=== PATIENT | male | born 2005 | race Caucasian/White ===

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

== ENCOUNTER 2023-12-02 13:25 | Emergency (ER) | payer OTHER ==
[~2023-12-02] VITALS: Ht 177.8 cm; Wt 69.9 kg
[~2023-12-02 13:25] MED LIST changes: +IBUP-2213 PO; +NAPR-337 PO; -NAPR-54 PO
[2023-12-02 13:30] VITALS: BP 135/85; PULSE 82; RESP 16; TEMP 98.9; O2SAT 96
[2023-12-02] MEDS: DICYCLOMINE HCL LIQUID 10 MG/5 ML UDC PO ONE (15:05)
[2023-12-02] MEDS: FAMOTIDINE 20 MG TAB PO ONE (15:05)
[2023-12-02 15:09] LABS: BASOPHILS % (AUTO) 0.5 % (0.0-2.0); EOSINOPHILS # (AUTO) 0.6 K/uL (0-0.4); EOSINOPHILS % (AUTO) 6.2 % (0.0-4.0); HEMATOCRIT 47.6 % (36-52); HEMOGLOBIN 16.1 g/dL (12.0-18.0); LYMPHOCYTES % (AUTO) 22.1 % (20.5-51.1); MEAN CORPUSCULAR HEMOGLOBIN 28 pg (27-31); MEAN CORPUSCULAR HGB CONC 34 g/dL (33-37); MEAN CORPUSCULAR VOLUME 81.7 fL (80-94); MONOCYTES # (AUTO) 1.1 K/uL (0.8-1.0); NEUTROPHILS # (AUTO) 5.3 K/uL (1.8-7.7); NEUTROPHILS % (AUTO) 59.2 % (42.2-75.2); PLATELET COUNT (AUTO) 226 K/uL (140-450); RED BLOOD CELL COUNT(AUTO) 5.82 MIL/uL (4.20-6.10); WHITE BLOOD COUNT (AUTO) 8.9 K/uL (4.5-11.0)
[2023-12-02 15:21] LABS: ANION GAP 14.6 (8-16); CALCIUM 8.9 mg/dL (8.5-10.1); CARBON DIOXIDE 26.5 mmol/L (21-32); CREATININE 1.2 mg/dL (0.6-1.3); POTASSIUM 4.1 mmol/L (3.5-5.1)
[2023-12-02 15:28] LABS: BILIRUBIN,DIRECT 0.1 mg/dL (0.0-0.3); TOTAL BILIRUBIN 0.5 mg/dL (0.0-1.0); TOTAL PROTEIN, SERUM 7.6 g/dL (6.4-8.2)
[2023-12-02 17:28] LABS: FLU A ANTIGEN negative (NEGATIVE); FLU B ANTIGEN NEGATIVE (NEGATIVE)
[2023-12-02] MEDS ORDERED: ACET-10509 PO (17:28)
[2023-12-02] MEDS ORDERED: FAMO-90 PO (17:28)
[2023-12-02] MEDS: CIPROFLOXACIN 250 MG TAB PO ONE (17:46)
[2023-12-02 17:50] VITALS: BP 111/81; PULSE 61; RESP 14; TEMP 98.5; O2SAT 98
== END 2023-12-02 17:52 | disposition home or self-care (01) ==
LOC: MED 13:25
DX: U07.1 COVID-19 (principal); Z79.899 Other long term (current) drug therapy
CPT/HCPCS: 36415; 80048; 80076; 83690; 85025; 99284